=== PATIENT | male | born 1975 | race Caucasian/White ===

== ENCOUNTER 2018-12-17 12:06 | Day surgery (SDC) | payer OTHER ==
[2018-12-15 15:44] VITALS: BMI 34.9
[2018-12-17] MEDS ORDERED: MIDAZOLAM HCL 2 MG/2 ML SINGLE DOSE VIAL ONE (12:19)
[2018-12-17] MEDS ORDERED: DEXAMETHASONE SOD PHOSPHATE 4 MG/1 ML VIAL ONE ×2 (12:19→12:59)
[2018-12-17] MEDS ORDERED: ONDANSETRON 4 MG/2 ML VIAL ONE (12:19)
[2018-12-17] MEDS ORDERED: fentaNYL CITRATE 250 MCG/5 ML VIAL ONE (12:19)
[2018-12-17] MEDS ORDERED: BUPIVACAINE HCL/PF 2.5 MG/ML - 30 ML VIAL IJ ONE (12:30)
[2018-12-17] MEDS ORDERED: oxyCODONE HCL 5 MG TABLET PO PRN ×2 (13:35)
[2018-12-17] MEDS: LABETALOL HCL 5 MG/1 ML (100MG/20 ML VIAL) ONE ×2 (14:00→14:20)
--- NOTE | 2018-12-17 14:05 | OP ---
DATE OF OPERATION: 12/17/2018 Done at [facility] SURGEON: Eli Jorge MD METAL AND PLASTIC HEATER: None. PREOPERATIVE DIAGNOSES: 1. Right knee medial and lateral meniscal tear. 2. Right knee cartilage injury. 3. Right knee synovitis. POSTOPERATIVE DIAGNOSES: 1. Right knee medial and lateral meniscal tear. 2. Right knee cartilage injury. 3. Right knee synovitis. PROCEDURE: 1. Right knee arthroscopy with partial meniscectomy medial and lateral meniscus, CPT code 37287. 2. Right knee arthroscopy with chondroplasty and abrasion-plasty, CPT code 39374. 3. Right knee arthroscopy with synovectomy, CPT code 94973. FINDINGS: 1. Medial meniscus uuse-[id number]-tayggpaev horn tear inner 1/3. 2. Lateral meniscus central body tear and posterior horn tear. 3. Synovitis patellofemoral medial and lateral notch. 4. Central 60% grade 2-3 changes with large posterior cartilage flap traumatic in nature. 5. 6-cm x 4-cm grade 4 changes medial portion medial tibial plateau, chronic. 6. ACL and PCL intact. 7. Minor grade 1-2 changes lateral joint. 8. grade 2-3 cartilage injury patella with 2-cm x 1-cm area of grade 4 changes central portion of patella and 1-2 changes patellofemoral trochlea. 9. Medial plica. DESCRIPTION OF PROCEDURE: Informed consent was obtained. The patient came to the operating room, where the lower extremity was prepped and draped in a sterile fashion. A tourniquet was placed on the upper thigh, but not inflated. Using standard arthroscopic technique, a lateral incision and portal was made to allow for introduction of the camera into the suprapatellar bursa. This was then taken to the medial joint line, where under direct visualization, a medial incision and portal was made. Excessive synovium noted in the medial, lateral and patellofemoral and notch area was removed by an upbiter, shaver and Bovie cautery. This was found to bring in inflammatory tissue into the joint surface, a source of pain and dysfunction. Probing of the medial and lateral meniscus found tears, as described in the findings. These were removed with the upbiter and shaver and taken back to a stable rim. Grade 2 to 3 degenerative changes were treated with a chondroplasty, removing all flaking surfaces with low-setting Bovie along the periphery to prevent further flaking. Grade 4 changes, as noted, were treated with an abrasoplasty, creating a bleeding surface at the bone/cartilage interface. Aggressive debridement with shaver/deborah created bleeding surface. Micro fracture also done when indicated in findings. All areas of the knee were once again reexamined. The knee was then drained and a single suture was placed in all portals. A sterile dressing was placed and the patient was transferred to the recovery room without complication. The PA listed above was present and assisted at surgery. Their presence was absolutely medically necessary for the completion of the procedure. They helped hold the arthroscopy, pass instruments (and implants when indicated) and the procedure could not have been completed without their assistance. ELI JORGE M.D. [id number]
[2018-12-17 15:20] VITALS: TEMP 97.9
[2018-12-17] MEDS ORDERED: oxyCODONE HCL 5 MG TABLET ONE (15:21)
[2018-12-17 16:04] VITALS: BP 132/86; PULSE 78
--- NOTE | 2018-12-22 17:04 | PATH ---
Surgical Pathology Report Patient Name: JOB ANGUIANO Med. Rec. #: [id number] /Age/Gender: 1975 (Age: 43) / M Account: [id number] Location: [facility] AMBULATORY Taken: 12/17/2018 Received: 12/21/2018 Reported: 12/22/2018 Physicians: Ham Marinelli M.D. Specimen(s) Received RIGHT KNEE SHAVINGS Clinical History Internal derangement right knee Final Diagnosis KNEE SHAVINGS, RIGHT, ARTHROSCOPY, PARTIAL MEDIAL AND LATERAL MENISCECTOMY, SYNOVECTOMY, CHONDROPLASTY: FRAGMENTS OF CARTILAGE, DENSE FIBROCONNECTIVE TISSUE, ADIPOSE TISSUE, AND SYNOVIUM. Electronically Signed Marycarmen Lugo M.D. Gross Description Received in formalin, labeled "right knee shavings" is a 4.5 x 2.5 x 0.5 cm aggregate of light cordon and yellow-cordon tissue. Adz Worker tissue is submitted in one cassette. AE/12/22/2018 ebram/12/22/2018
== END 2018-12-17 16:10 | disposition home or self-care (01) ==
LOC: FASU 12:06
PROVIDERS: ATTEND Orthopaedic Surgery
PROC: 0SBC4ZZ Excision of Right Knee Joint, Percutaneous Endoscopic Approach (ICD-10-PCS; 2018-12-17)
PROC: 0SBC4ZZ Excision of Right Knee Joint, Percutaneous Endoscopic Approach (ICD-10-PCS; 2018-12-17)
PROC: 0SBC4ZZ Excision of Right Knee Joint, Percutaneous Endoscopic Approach (ICD-10-PCS; principal; 2018-12-17 12:55)
DX: S83.241A Other tear of medial meniscus, current injury, right knee, initial encounter (principal); S83.281A Other tear of lateral meniscus, current injury, right knee, initial encounter; S83.8X1A Sprain of other specified parts of right knee, initial encounter; M65.861 Other synovitis and tenosynovitis, right lower leg; X58.XXXA Exposure to other specified factors, initial encounter; Y93.9 Activity, unspecified; Y92.9 Unspecified place or not applicable
CPT/HCPCS: 88304-TC; 94760